=== PATIENT | female | born 1965 | race Caucasian/White ===

== ENCOUNTER 2023-11-27 15:01 | Emergency (ER) | payer OTHER, SELFPAY ==
[2023-11-27 15:06] VITALS: BP 137/74; PULSE 89; RESP 16; TEMP 37.1; O2SAT 99; BMI 18.4
--- NOTE | 2023-11-27 15:10 | XR_ITS ---
The [address] [address] Patient Name: REHAN HOFFMANN MRN: [id number] date: 1965 Sex: F Assigned Patient Location: ER Current Patient Location: ED.MAIN Accession/Order Number: [id number] Exam Date: 11/27/2023 15:17 Report Date: 11/27/2023 15:42 At the request of: MILTON SMITH Procedure: XR knee RT 3V EXAM: XR knee RT 3V HISTORY: fall COMPARISON: None TECHNIQUE: 3 views of the right knee were obtained. FINDINGS: No definite acute fracture or dislocation. No significant focal osseous or articular abnormalities are identified. No evidence of sizable suprapatellar joint effusion. Soft tissues are grossly within normal limits. XR/XR knee RT 3V IMPRESSION: Right knee study fails to demonstrate definite acute fracture or dislocation. Follow-up as needed. Electronically authenticated by: ANEL BAJWA Date: 11/27/2023 15:42
--- NOTE | 2023-11-27 15:27 | ED_ITS ---
HPI - Extremity Injury (Lower) General Chief Complaint: Extremity Injury, Lower Stated Complaint: WC-R KNEE INJURY Time Seen by Provider: 11/27/23 15:08 Source: patient Limitations: no limitations History of Present Illness HPI Narrative: Patient is a 58-year-old female who presents to the emergency department for evaluation of right knee pain after an injury at work about 8 hours ago. She states that she works at the [employer] home and slipped on water falling, twisting her right knee. She complains of pain with valgus strain to the right lateral knee. She is able to ambulate. No other associated injuries. No medications taken prior to arrival. She just finished her shift at the [employer] and came to the ER to be evaluated. Related Data Previous Rx's Medication Instructions Recorded methocarbamol 750 mg tablet 750 mg PO TID PRN pain #20 tabs 11/27/23 methylprednisolone 4 mg tablets in See Rx Instructions .Route 11/27/23 a dose pack (Medrol (Anand)) .COMPLEX #21 ea Allergies Allergy/AdvReac Type Severity Reaction Status Date / Time Penicillins Allergy Severe Hives Verified 11/27/23 15:06 Review of Systems ROS Constitutional Denies: fever or chills Ears, nose, mouth, and throat Denies: throat pain or nasal congestion Cardiovascular Denies: chest pain Respiratory Denies: shortness of breath Gastrointestinal Denies: nausea or vomiting Genitourinary Denies: painful urination Musculoskeletal Reports: extremity pain, extremity swelling, joint pain and limited range of motion; Denies: back pain or neck pain Integumentary/Breast Denies: rash Neurological Denies: headache Hematologic/Lymphatic Denies: easy bruising or easy bleeding [facility] Social History Smoking status: Heavy tobacco smoker Exam Narrative Exam Narrative: Gen.: Awake, alert, in no distress Head: Normocephalic, atraumatic ENT: Moist mucous membranes Respiratory: No respiratory distress Extremities: Moves extremities equally, No joint effusion noted of the right knee with normal flexion and extension of the right knee.No laxity of the patella, no ecchymosis or obvious deformity. No bony tenderness of the right ankle or foot. Psych: Normal mood and affect Neuro: No focal neuro deficit Skin: Warm, dry, intact Constitutional Vital Signs, click to edit/add: Last Vital Signs Temp 98.8 F 11/27/23 15:06 Pulse 89 11/27/23 15:06 Resp 16 11/27/23 15:06 BP 137/74 11/27/23 15:06 Pulse Ox 99 11/27/23 15:06 O2 Del Method Room Air 11/27/23 15:06 Course Vital Signs Vital signs: Vital Signs Temperature 98.8 F 11/27/23 15:06 Pulse Rate 89 11/27/23 15:06 Respiratory Rate 16 11/27/23 15:06 Blood Pressure 137/74 11/27/23 15:06 Pulse Oximetry 99 11/27/23 15:06 Oxygen Delivery Method Room Air 11/27/23 15:06 Temperature 98.8 F 11/27/23 15:06 Pulse Rate 89 11/27/23 15:06 Respiratory Rate 16 11/27/23 15:06 Blood Pressure 137/74 11/27/23 15:06 Pulse Oximetry 99 11/27/23 15:06 Oxygen Delivery Method Room Air 11/27/23 15:06 MDM - Extremity Injury (Lower) MDM Narrative Medical decision making narrative: X-rays reviewed by the radiologist with no evidence of fracture or dislocation. Patient placed on Medrol Dosepak and Robaxin for home. Referred to occupational health. Rest, ice, elevate. Return to the ER if symptoms change or worsen. She was placed in a knee immobilizer with Storm wrap and remains neurovascularly intact. Medical Records Attestation: I reviewed the patient's medical records. Imaging Data XR knee: Attestation: I have reviewed the pertinent imaging results. Radiologist's impression: ITS Impressions Knee X-Ray 11/27/23 15:10 IMPRESSION: Right knee study fails to demonstrate definite acute fracture or dislocation. Follow-up as needed. Electronically authenticated by: ANEL BAJWA Date: 11/27/2023 15:42 Discharge Plan Discharge Chief Complaint: Extremity Injury, Lower Clinical Impression: Right knee sprain Patient Disposition: Home, Self-Care Time of Disposition Decision: 15:46 Condition: Good Prescriptions / Home Meds: New methocarbamol 750 mg tablet 750 mg PO TID PRN (Reason: pain) Qty: 20 0RF methylprednisolone [Medrol (Anand)] 4 mg tablets,dose pack See Rx Instructions .ROUTE .COMPLEX Qty: 21 0RF Rx Instructions: Taper as directed Instructions: Knee Sprain (ED), How to Use an Elastic Bandage (ED) Stand Alone Forms: Portal Instructions Referrals: [facility] [Outside] - 1 week
== END 2023-11-27 16:04 | disposition home or self-care (01) ==
PROVIDERS: Emergency Provider Emergency Medicine
DX: S83.91XA Sprain of unspecified site of right knee, initial encounter (principal); W01.0XXA Fall on same level from slipping, tripping and stumbling without subsequent striking against object, initial encounter; F17.210 Nicotine dependence, cigarettes, uncomplicated
CPT/HCPCS: 73562; 99283